=== PATIENT | male | born 1975 | race Caucasian/White ===

== ENCOUNTER → 2021-08-11 | Outpatient (CLI) | payer OTHER ==
[~2021-08-11] MED LIST: ADDE20CA3 PO; D-AMPHETAMINE
== END ==
LOC: M LABSMTC 09:30
PROVIDERS: ATTEND Anesthesiology
DX: Z01.812 Encounter for preprocedural laboratory examination (principal); Z20.822 Contact with and (suspected) exposure to COVID-19

== ENCOUNTER 2021-08-16 10:19 | Day surgery (SDC) | payer OTHER ==
[~2021-08-16] VITALS: Ht 177.8 cm; Wt 90.2 kg
[~2021-08-16 10:19] MED LIST changes: +NS 1,000 ML IV ONE
[2021-08-16] MEDS ORDERED: ALLE24TA7 PO (11:19)
[2021-08-16] MEDS ORDERED: LIDOCAINE 2% 100MG/5ML SDV (FOR ANES.) As Ordered ONE (12:46)
[2021-08-16] MEDS ORDERED: propofoL 500 MG/50 ML VIAL As Ordered ONE (12:46)
[2021-08-16 13:25] VITALS: BP 118/82
== END 2021-08-16 13:41 | disposition home or self-care (01) ==
LOC: M OPP 10:19
PROVIDERS: ATTEND Surgery
DX: Z12.11 Encounter for screening for malignant neoplasm of colon (principal); Z80.0 Family history of malignant neoplasm of digestive organs; Z79.899 Other long term (current) drug therapy; Z88.0 Allergy status to penicillin